=== PATIENT | male | born 1945 | race Caucasian/White ===

== ENCOUNTER 2021-11-25 16:20 | Emergency (ER) | payer MEDICARE, OTHER ==
[~2021-11-25] VITALS: Ht 165.1 cm; Wt 84.1 kg
[~2021-11-25 16:20] MED LIST: ASCO-134 PO; ASPI325T88 PO; ATOR80TA PO; CHOL10006 PO; CLOP75TA15 PO; COR3.125T PO; GEMF600T89 PO; GLYB2.5T59 PO; LOSA25TA41 PO; MULT-1085 PO; NITR0.4T51 SL; OM-31CAP9 PO; ZET10T PO
[2021-11-25 16:36] VITALS: BP 128/77
[2021-11-25 17:17] LABS: BASOPHILS # (AUTO) 0.1 X10'3 (0-0.2); BASOPHILS % (AUTO) 0.7 % (0-1); EOSINOPHILS # (AUTO) 0.3 X10'3 (0-0.9); EOSINOPHILS % (AUTO) 2.9 % (0-6); HEMATOCRIT 37.3 % (42.0-52.0); HEMOGLOBIN 12.6 g/dl (14.0-17.9); LYMPHOCYTES # (AUTO) 2.2 X10'3 (1.1-4.8); MEAN CORPUSCULAR HEMOGLOBIN 31.8 PG (27.0-31.0); MEAN CORPUSCULAR HGB CONC 33.8 g/dL (33.0-36.5); MEAN CORPUSCULAR VOLUME 94.1 FL (78-98); MEAN PLATELET VOLUME 9.7 FL (7.4-10.4); MONOCYTES # (AUTO) 0.8 X10'3 (0-0.9); MONOCYTES % (AUTO) 8.9 % (2-12); NEUTROPHILS # (AUTO) 6.1 X10'3 (1.8-7.7); NEUTROPHILS % (AUTO) 64.5 % (42-75); PLATELET COUNT 247 X10'3 (140-440); RED BLOOD COUNT 3.96 X10'6 (4.70-6.10); RED CELL DISTRIBUTION WIDTH 13.9 % (11.5-14.5); WHITE BLOOD COUNT 9.5 X10'3 (4.5-11.0)
[2021-11-25 17:32] LABS: ALANINE AMINOTRANSFERASE 14 U/L (12-78); ALBUMIN 4.1 G/DL (3.4-5.0); ALBUMIN/GLOBULIN RATIO 1.5 (1.1-1.5); ALKALINE PHOSPHATASE 61 IU/L (46-116); AMYLASE 55 U/L (25-115); ANION GAP 10 (8-16); ASPARTATE AMINO TRANSFERASE 14 U/L (10-37); BILIRUBIN,TOTAL 0.5 MG/DL (0.1-1.0); BLOOD UREA NITROGEN 37 MG/DL (7-18); CALCIUM 9.6 MG/DL (8.5-10.1); CHLORIDE 107 MMOL/L (99-107); CREATININE 1.32 MG/DL (0.60-1.10); GLUCOSE 110 MG/DL (70-104); LIPASE 204 U/L (73-393); POTASSIUM 4.5 MMOL/L (3.5-5.1); SODIUM 141 MMOL/L (135-145); TOTAL CARBON DIOXIDE 23.7 MMOL/L (24-32); TOTAL PROTEIN 6.9 G/DL (6.4-8.2); eGFR 53 ML/MIN
== END 2021-11-25 20:54 | disposition left against medical advice (07) ==
LOC: ER 16:20
DX: R19.5 Other fecal abnormalities (principal); Z53.21 Procedure and treatment not carried out due to patient leaving prior to being seen by health care provider
CPT/HCPCS: 36415; 80053; 82150; 83690; 85025

== ENCOUNTER 2024-11-13 08:38 | Day surgery (SDC) | payer MEDICARE ==
[2024-11-12 16:17] LABS: BASOPHILS # (AUTO) 0.1 X10'3 (0-0.2); BASOPHILS % (AUTO) 1.2 % (0-1); EOSINOPHILS # (AUTO) 0.4 X10'3 (0-0.9); EOSINOPHILS % (AUTO) 5.9 % (0-6); HEMATOCRIT 44.1 % (42.0-52.0); HEMOGLOBIN 15.1 g/dl (14.0-17.9); LYMPHOCYTES # (AUTO) 2.1 X10'3 (1.1-4.8); LYMPHOCYTES % (AUTO) 27.8 % (21-51); MEAN CORPUSCULAR HEMOGLOBIN 32.5 PG (27.0-31.0); MEAN CORPUSCULAR HGB CONC 34.3 g/dL (33.0-36.5); MEAN CORPUSCULAR VOLUME 94.9 FL (78-98); MONOCYTES # (AUTO) 0.7 X10'3 (0-0.9); MONOCYTES % (AUTO) 9.7 % (2-12); NEUTROPHILS # (AUTO) 4.2 X10'3 (1.8-7.7); NEUTROPHILS % (AUTO) 55.4 % (42-75); PLATELET COUNT 210 X10'3 (140-440); RED BLOOD COUNT 4.65 X10'6 (4.70-6.10); RED CELL DISTRIBUTION WIDTH 13.4 % (11.5-14.5); WHITE BLOOD COUNT 7.5 X10'3 (4.5-11.0)
[2024-11-12 16:28] LABS: ANION GAP 8 (8-16); BLOOD UREA NITROGEN 13 MG/DL (7-18); BUN/CREATININE RATIO 14.3 (10.0-20.0); CALCIUM 8.9 MG/DL (8.5-10.1); CHLORIDE 107 MMOL/L (99-107); CREATININE 0.91 MG/DL (0.60-1.10); GLUCOSE 123 MG/DL (70-104); POTASSIUM 4.2 MMOL/L (3.5-5.1); SODIUM 141 MMOL/L (135-145); eGFR 81 ML/MIN
[2024-11-12 16:31] LABS: APTT 25 SECONDS (22-32); INR 1.1 INR; PROTHROMBIN TIME 10.9 SECONDS (9.0-12.0)
[~2024-11-13] VITALS: Ht 165.1 cm; Wt 82.5 kg
[2024-11-13] VITALS (15 sets, daily range): BP systolic 94–135; BP diastolic 34–87; PULSE 45–68; RESP 16; TEMP 97.6; O2SAT 92–100
[~2024-11-13 08:38] MED LIST changes: +ATOR-429 PO; -ATOR80TA PO; +CARV3.1232 PO; -COR3.125T PO
--- NOTE | 2024-11-13 09:12 | ELECTROCARDIOGRAPH REPORT ---
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 Mk Delacruz Measurements Intervals [place] Rate: 48 P: -4 CA: 181 QRS: -40 QRSD: 115 T: -17 QT: 484 QTc: 433 Interpretive Statements Sinus bradycardia Nonspecific IVCD with LAD Borderline T abnormalities, inferior leads Electronically Signed On 11-14-2024 9:43:[address] Mk Delacruz Please click the below link to view image of tracing.
[2024-11-13] MEDS ORDERED: midazolam 1 mg/ML 2ml injection ONE (09:15)
[2024-11-13] MEDS ORDERED: LIDOcaine 1% 30ml preserv. free vial ONE (09:15)
[2024-11-13] MEDS ORDERED: verapamil 2.5 mg/ml inj IV ONE (09:15)
[2024-11-13] MEDS ORDERED: fentaNYL/PF 50MCG/1 ML 2ML syringe ONE (09:15)
[2024-11-13] MEDS ORDERED: iohexol 350 MG/ML 50ML vial IV ONE (09:16)
[2024-11-13] MEDS ORDERED: nitroGLYCERIN 500mcg/5mL D5W 5 ML IV ONE ×2 (09:16→11:34)
[2024-11-13] MEDS ORDERED: iohexol 350MG/ML 100ml bottle IV ONE ×2 (09:16→11:45)
[2024-11-13] MEDS ORDERED: heparin 1,000unit/ml 10ml vial 10 ML ONE (09:16)
[2024-11-13] MEDS ORDERED: CARV3.1244 PO (09:34)
[2024-11-13] MEDS ORDERED: LOSA50TA64 PO (09:34)
[2024-11-13] MEDS ORDERED: METF-438 PO (09:34)
[2024-11-13] MEDS ORDERED: FINA5TAB11 PO (09:34)
[2024-11-13] MEDS ORDERED: TAMS-55 PO (09:34)
[2024-11-13] MEDS: normal saline 1,000 ML IV SCH (09:42)
[2024-11-13] MEDS: LORazepam 0.5 MG tablet PO PRN (09:42)
[2024-11-13] MEDS: diphenhydrAMINE 25mg capsule PO PRN (09:42)
[2024-11-13] MEDS ORDERED: atropine 0.1mg/ml 10ml syringe ONE (10:29)
[2024-11-13] MEDS ORDERED: heparin 25,000 UNIT/250ml bag 250 ML IV ONE (11:22)
[2024-11-13] MEDS ORDERED: clopidogrel 300mg tablet ONE (11:46)
[2024-11-13] MEDS ORDERED: aspirin 325mg tablet ONE (11:57)
[2024-11-13] MEDS ORDERED: clopidogrel 300mg tablet PO ONE (12:30)
[2024-11-13] MEDS ORDERED: HYDROcodone/acetaminophen 5mg/325mg tablet PO PRN (12:30)
[2024-11-13] MEDS ORDERED: CLOP75TA34 PO (12:35)
[2024-11-13] MEDS ORDERED: ASPI81TA52 PO (12:35)
--- NOTE | 2024-11-13 12:46 | ELECTROCARDIOGRAPH REPORT ---
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 Mk Delacruz Measurements Intervals [place] Rate: 48 P: -2 HI: 186 QRS: -55 QRSD: 111 T: -41 QT: 497 QTc: 445 Interpretive Statements Sinus bradycardia Incomplete left bundle branch block Electronically Signed On 11-14-2024 9:46:[address] Mk Delacruz Please click the below link to view image of tracing.
[2024-11-13] MEDS: HYDROcodone/acetaminophen 10/325mg tab PO PRN (17:58)
--- NOTE | 2024-11-14 07:30 | CARDIOLOGY REPORT ---
DATE OF SERVICE: 11/13/2024 DICTATING PHYSICIAN: FAY Garcia MD CARDIAC CATHETERIZATION GENDER: Male. AGE: 79 years. HEIGHT: 165 cm. WEIGHT: 86.8 kg. BODY SURFACE AREA: 1.94 m2. PRIMARY PHYSICIAN: Melvin Hall MD ECONOMIC ADVISER: FAY Garcia MD INDICATIONS: The patient is a 79-year-old male with history of hypertension, hyperlipidemia, CAD, CABG, and stenting with abnormal stress test. The patient's history of CAD dates back to 1998 when the patient did have a PTCA stenting of the RCA in 1998 and subsequently underwent having CABG x 2 in 2000 when he received SVG to LAD and SVG to RCA. The patient had an angiography on at [facility]. The patient's next cardiac evaluation was back on 09/13/2012 and at that time mid LAD long 70% to 80%, had successfully angioplastied and stented with 2.25/28 mm Xience stent. Distally, a 2.5/12 mm Xience in mid portion, 2.7/38 Xience stent in the proximal portion with good flow. There was a left RCA with 100% occluded [id number] collaterals and both his vein grafts were occluded. The patient had an angiography 08/17/2020. At that time, both his vein grafts were occluded. Stent in the mid LAD was widely patent. Then, he was sent for recanalization of the RCA with Dr. Mccoy. 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 Mccoy on 10/21/2020 and the entire RCA was stented with DA stent x 4. Now, the patient has developed inferior reversible ischemia and undergoing coronary angiography. Risks, benefits, and alternative options discussed. Informed consent obtained. PROCEDURES DONE: * Ultrasound-guided right radial artery visualization access. * Left heart catheterization. * LVG. * Coronary cineangiography. * Ascending aortography. * Graft cineangiography. * PTCA stenting of mid PDA. * Conscious sedation time of 45 minutes. FINDINGS: HEMODYNAMICS: Aortic systolic 103 mmHg, diastolic 66 mmHg, mean 84 mmHg. LVEDP of 8 mmHg. No gradient across the aortic valve. LVG: Overall, left ventricular systolic function normal at 65%. Ascending aortography revealed normal ascending aorta with both vein grafts occluded. He received SVG to LAD and SVG to RCA. CORONARY CINEANGIOGRAPHY: JL-3.5 catheter with the right radial approach. Left main coronary artery is a large caliber vessel arising from the left aortic sinus with minimal irregularities. Mid LAD is a medium caliber vessel arising at the bifurcation of the left main coronary artery, courses through the anterior intraventricular groove and ends by wrapping around the apex. The entire segment proximal, mid and distal LAD are widely patent. Diagonal 1 is 2 mm caliber with mild luminal irregularities. Diagonal 2 and 3 are 1.5 mm caliber with mild luminal irregularities. Ramus intermedius is a 2.25 mm caliber with mild luminal irregularities. Circumflex is a 2.5 mm caliber arising at the bifurcation of the left main coronary artery, courses through the left AV groove predominantly and continuous as a principal OM with mild luminal irregularities. Right coronary artery is a dominant vessel arising from right aortic sinus and courses through the right AV groove and ends at the posterior crux by dividing into PDA and a posterolateral branch. The entire stented RCA segments are widely patent. Mid PDA has about 80% narrowing. Posterolateral has mild luminal irregularities. PTCA STENTING OF THE MID PDA: A 6-Malay extra backup RCA guide without sidehole gave good support. Lesion crossed with PT2 moderate wire. Mid PDA lesion angioplastied with 2.25/12 mm balloon at 8 atmospheric pressures. Subsequently, it was stented with 2.25/15 Resolute [place] stent and subsequently postdilated to 2.5 mm. There was a little bit of spasm of the PDA distal end which gently angioplastied with 2.25/13 mm at 6 atmospheric pressures. Post procedure, ARTIE-3 flow. The patient tolerated the procedure with no complications. IMPRESSION: A 79-year-old male with LV ejection fraction of 65%. LVEDP of 8 mmHg with no significant gradient across the aortic valve. Left main normal. Mid LAD stented segment are widely patent. Circumflex marginal mild minimal disease. RCA stented segment are widely patent. PDA had a mid 80% narrowing, successfully angioplastied and stented with 2.25/15 Resolute [place] stent, postdilated to 2.5 mm. Post procedure, ARTIE-3 flow. The patient tolerated the procedure well. RECOMMENDATIONS: Recommend continued aggressive coronary risk factor modification, namely low-fat, low-cholesterol diet, maintaining ideal body weight, keeping the LDL less than 70 mg percent with regular exercise program. BV MD Radha TID: [id number] RECEIPT: [id number] PRINCESS/VIN/JOANNA cc: Melvin Hall MD [facility]
[2024-11-14] MEDS ORDERED: clopidogrel 75mg tablet PO SCH (08:00)
[2024-11-14] MEDS ORDERED: aspirin 81mg, enteric-coated 1 TAB TABLET.DR PO SCH (08:00)
== END 2024-11-13 19:05 | disposition home or self-care (01) ==
LOC: SSTAY O 08:38
PROVIDERS: ATTEND Internal Medicine Cardiovascular Disease
DX: I25.10 Atherosclerotic heart disease of native coronary artery without angina pectoris (principal); I44.7 Left bundle-branch block, unspecified; I25.810 Atherosclerosis of coronary artery bypass graft(s) without angina pectoris; I10 Essential (primary) hypertension; Z95.1 Presence of aortocoronary bypass graft; Z79.01 Long term (current) use of anticoagulants; Z79.899 Other long term (current) drug therapy
CPT/HCPCS: 36415; 80048; 82948; 85025; 85347; 85610; 85730; 93005; 93459; 93567; 99152; 99153; A6258; A6402; C1725; C1751; C1769; C1874; C1894; C9600; J1644; J2003; J2250; J3010; J3490; J7030; Q0163; Q9967; Z7610; 76937; 93458; J0461